=== PATIENT | male | born 1970 | race Caucasian/White ===

== ENCOUNTER 2023-02-08 13:40 | Outpatient (CLI) | payer BC | END 2023-02-08 13:41 | disposition home or self-care (01) | LOC: BICRAD 13:40 | PROVIDERS: ATTEND Internal Medicine Rheumatology | DX: M75.01 Adhesive capsulitis of right shoulder (principal); M75.02 Adhesive capsulitis of left shoulder ==

== ENCOUNTER 2025-04-21 18:46 | Emergency (ER) | payer BC, SELFPAY ==
[2025-04-21 19:10] LABS: #Basophils 0.03 10x3/uL (0.0-0.2); #Eosinophils 0.08 10x3/uL (0.0-0.7); #Monocytes 0.65 10x3/uL (0.11-0.59); #Neutrophils 3.18 10x3/uL (1.40-6.50); %Basophils 0.6 % (0.0-1.0); %Eosinophils 1.5 % (0.0-10.0); %Lymphocytes 25.6 % (21.0-51.0); %Monocytes 12.2 % (0.0-10.0); %Neutrophils 59.9 % (42.0-75.0); Hematocrit 39.1 % (42.0-52.0); Hemoglobin 12.6 g/dL (14.0-18.0); Mean Corpuscular Hemoglobin 26.5 pg (27.0-31.0); Mean Corpuscular Volume 82.1 fL (78.0-98.0); Platelet Count 369 10x3/uL (130-400); Red Blood Cell (RBC) Count 4.76 mill/uL (4.70-6.10); White Blood Cell (WBC) Count 5.31 10x3/uL (4.8-10.8)
[2025-04-21 19:27] LABS: ALT (SGPT) 11 U/L (Less than 45); AST (SGOT) 22 U/L (11-34); Albumin 3.7 g/dL (3.1-4.5); Alkaline Phosphatase 64 U/L (40-110); Anion Gap 21 mmol/L (10-20); BUN (Urea Nitrogen) 16 mg/dL (8.4-25.7); Bilirubin, Total 0.3 mg/dL (0.3-1.2); Calc. Creatinine Clearance 0 mL/min (70-130); Calcium 9.7 mg/dL (7.8-10.44); Carbon Dioxide 24 mmol/L (22-29); Chloride 100 mmol/L (98-107); Globulin 3.8 g/dL (2.4-3.5); Glucose 92 mg/dL (70-105); Potassium 4.6 mmol/L (3.5-5.1); Sodium 140 mmol/L (136-145)
== END 2025-04-21 21:55 ==
LOC: ERS 18:46
DX: Z53.21 Procedure and treatment not carried out due to patient leaving prior to being seen by health care provider (principal)
CPT/HCPCS: 71045; 80053; 84484; 85025; 93005